=== PATIENT | male | born 1975 | race Caucasian/White ===

== ENCOUNTER 2020-03-25 21:34 | Emergency (ER) | payer OTHER ==
[2020-03-25 21:42] VITALS: BP 151/94
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
== END 2020-03-25 22:22 | disposition left against medical advice (07) ==
LOC: ER 21:34
DX: M54.9 Dorsalgia, unspecified (principal); R07.81 Pleurodynia; V43.52XA Car driver injured in collision with other type car in traffic accident, initial encounter; Y92.414 Local residential or business street as the place of occurrence of the external cause; Z79.84 Long term (current) use of oral hypoglycemic drugs; Z53.29 Procedure and treatment not carried out because of patient's decision for other reasons
CPT/HCPCS: 99281